=== PATIENT | male | born 2000 | race Caucasian/White ===

== ENCOUNTER 2022-08-16 10:55 | Emergency (ER) | payer OTHER ==
--- NOTE | 2022-08-16 11:12 | ED Physician Documentation ---
PD HPI CHEST PAIN - Stated complaint Stated Complaint: CHEST PAIN - Chief complaint Chief Complaint: Cardiac - History obtained from History obtained from: Patient - History of Present Illness Timing - onset: Yesterday Timing - onset during: Light activity Timing - details: Abrupt onset, Still present, Waxing and waning Pain level max: 2 Pain level now: 1 Quality: Aching, Sharp. No: Pressure, Tightness Location: Left chest, Left shoulder/arm Radiation: No: Jaw, Neck, Back, Abdominal Improved by: No: Rest Worsened by: Inspiration, Movement (lifting arm up), Palpation (left pectoral area). No: Exertion Associated symptoms: Other (he had worked out vigorously 2 days ago for physical training test. No noted injury at that time. onset of some left chest pain yesterday and continues into today, left pectoral area.). No: Shortness of air, Nausea, Feeling faint / dizzy, Palpitations, Cough Similar symptoms before: Has not had sx before Recently seen: Not recently seen Review of Systems Constitutional: denies: Fever, Chills Nose: denies: Rhinorrhea / runny nose, Congestion Throat: denies: Sore throat Cardiac: reports: Chest pain / pressure. denies: Palpitations, Pedal edema, Calf pain Respiratory: denies: Dyspnea, Cough, Wheezing GI: denies: Abdominal Pain, Nausea, Vomiting, Diarrhea Skin: denies: Rash, Lesions Neurologic: denies: Focal weakness, Numbness, Near syncope, Altered mental status PD PAST MEDICAL HISTORY - Past Medical History Past Medical History: No Cardiovascular: None Respiratory: None Endocrine/Autoimmune: None GI: None - Present Medications Home Medications: Ambulatory Orders Medication Instructions Recorded Confirmed No Known Home Medications 08/16/22 08/16/22 - Allergies Allergies/Adverse Reactions: Allergies Allergy/AdvReac Type Severity Reaction Status Date / Time No Known Drug Allergies Allergy Verified 08/16/22 10:59 PD ED PE NORMAL - Vitals Vital signs reviewed: Yes - General General: Alert and oriented X 3, No acute distress, Well developed/nourished - HEENT HEENT: Moist mucous membranes, Pharynx benign - Neck Neck: Supple, no meningeal sign, No adenopathy - Cardiac Cardiac: RRR, No murmur - Respiratory Respiratory: Clear bilaterally, Other (some chestwall tenderness to palpation left pectoral area without deformity, rash, redness. ) - Abdomen Abdomen: Soft, Non tender - Derm Derm: Normal color, Warm and dry - Extremities Extremities: No edema, No calf tenderness / cord Results - Vitals Vitals: Vital Signs - 24 hr 08/16/22 08/16/22 10:59 12:48 Temperature 36.8 C Heart Rate 114 H 83 Respiratory 18 16 Rate Blood Pressure 177/101 H 147/74 H O2 Saturation 100 100 Oxygen O2 Source Room air - EKG (time done) 10:59 Rate: Rate (enter#) (105) Rhythm: Sinus tachycardia [place]: Normal Intervals: Normal [place] QRS: Normal Ischemia: Normal ST segments. No: ST elevation c/w ischemia, ST depression - Labs Labs: Laboratory Tests 08/16/22 08/16/22 08/16/22 11:50 11:50 11:50 WBC 6.9 RBC 4.99 Hgb 15.7 Hct 44.6 MCV 89.4 MCH 31.5 H MCHC 35.2 RDW 11.9 L Plt Count 217 MPV 9.7 Neut # (Auto) 5.3 Lymph # (Auto) 1.2 L Andrew # (Auto) 0.4 Eos # (Auto) 0.0 Baso # (Auto) 0.0 Absolute Nucleated RBC 0.00 Nucleated RBC % 0.0 Sodium 140 Potassium 4.2 Chloride 103 Carbon Dioxide 29 Anion Gap 8.0 BUN 10 Creatinine 1.0 Estimated GFR (MDRD) 92 Glucose 106 H Calcium 10.1 Magnesium 2.1 Total Bilirubin 1.3 H AST 23 ALT 25 Alkaline Phosphatase 68 Troponin I High Sens < 2.3 L C-Reactive Protein < 1.0 Total Protein 7.8 Albumin 5.1 Globulin 2.7 Albumin/Globulin Ratio 1.9 Lipase 25 - Rads (name of study) chest xray Radiology: Prelim report reviewed (no acute process), See rad report PD MEDICAL DECISION MAKING - ED course Complexity details: reviewed results, re-evaluated patient, considered differential, d/w patient Departure - Departure Disposition: Home, Self Care Clinical Impression: Chest discomfort Condition: Stable Record reviewed to determine appropriate education?: Yes Instructions: ED Chest Pain Atypical Unkn Cause Follow-Up: DERICK Jaramillo [Provider Group] Comments: Your EKG, chest x-ray, blood tests are normal. No signs of heart muscle injury, heart failure, pneumonia, fluid around the lungs, collapsed lung, anemia, diabetes. Unclear whether there may be some esophageal irritation or stomach irritation given a possible improvement with the antacid. You can continue some antacid such as Maalox or Mylanta a few times daily. Otherwise consider musculoskeletal pain and muscle spasm. Tylenol every 4-6 hours if needed for discomfort. Recheck if not improved completely over the next day or 2 and follow-up sooner if worsening symptoms or new symptoms develop such as fever cough rash etc. Discharge Date/Time: 08/16/22 12:53
[2022-08-16] MEDS ORDERED: MAG HYDROX/AL HYDROX/SIMETH 30 ML UDC PO STA (11:43)
[2022-08-16 11:56] LABS: BASOPHILS % (AUTO) 0.1 %; EOSINOPHILS % (AUTO) 0.4 %; HCT - HEMATOCRIT 44.6 % (42.0-52.0); HGB - HEMOGLOBIN 15.7 g/dL (14.0-18.0); LYMPHOCYTES # (AUTO) 1.2 10^3/uL (1.5-3.5); MEAN CORPUSCULAR HEMOGLOBIN 31.5 pg (27.0-31.0); MEAN CORPUSCULAR HGB CONC 35.2 g/dL (32.0-36.0); MEAN CORPUSCULAR VOLUME 89.4 fL (80.0-94.0); MEAN PLATELET VOLUME 9.7 fL (7.4-11.4); MONOCYTES # (AUTO) 0.4 10^3/uL (0.0-1.0); MONOCYTES % (AUTO) 5.1 %; NEUTROPHILS # (AUTO) 5.3 10^3/uL (1.5-6.6); NEUTROPHILS % (AUTO) 77.1 %; PLT - PLATELET COUNT 217 10^3/uL (130-450); RED BLOOD COUNT 4.99 10^6/uL (4.70-6.10); RED CELL DISTRIBUTION WIDTH 11.9 % (12.0-15.0); WHITE BLOOD COUNT 6.9 x10^3/uL (4.8-10.8)
--- NOTE | 2022-08-16 12:10 | XRAY Report ---
PROCEDURE: Chest 1 View X-Ray INDICATIONS: Chest Pain TECHNIQUE: One view of the chest was acquired. COMPARISON: None FINDINGS: Surgical changes and devices: None. Lungs and pleura: No pleural effusions or pneumothorax. Lungs are clear. Mediastinum: Mediastinal contours appear normal. Heart size is normal. Bones and chest wall: No suspicious bony lesions. Overlying soft tissues appear unremarkable. IMPRESSION: No acute cardiopulmonary findings Reviewed by: Viral Alcantar MD on 08/16/2022 11:08 AM EUFEMIA Approved by: Viral Alcantar MD on 08/16/2022 11:08 AM AKCASSIE Station ID: [id number]
[2022-08-16 12:16] LABS: ALBUMIN 5.1 g/dL (3.2-5.5); ALBUMIN/GLOBULIN RATIO 1.9 (1.0-2.2); ALKALINE PHOSPHATASE 68 IU/L (42-121); ALT ALANINE AMINOTRANSFERASE 25 IU/L (10-60); AST ASPARTATE AMINOTRANSFERASE 23 IU/L (10-42); BILIRUBIN,TOTAL 1.3 mg/dL (0.2-1.0); BUN - BLOOD UREA NITROGEN 10 mg/dL (6-20); CALCIUM 10.1 mg/dL (8.5-10.3); CARBON DIOXIDE - CO2 29 mmol/L (21-32); CHLORIDE 103 mmol/L (101-111); GFR - MDRD 92 (>89); GLUCOSE 106 mg/dL (70-100); LIPASE 25 U/L (22-51); MAGNESIUM 2.1 mg/dL (1.7-2.8); POTASSIUM 4.2 mmol/L (3.5-5.0); SODIUM 140 mmol/L (135-145); TOTAL PROTEIN 7.8 g/dL (6.7-8.2)
[2022-08-16 12:18] LABS: CRP - C-REACTIVE PROTEIN < 1.0 mg/dL (0-1.0)
[2022-08-16 12:49] VITALS: BP 147/74
== END 2022-08-16 12:53 | disposition home or self-care (01) ==
LOC: ED 10:55
DX: R07.9 Chest pain, unspecified (principal)
CPT/HCPCS: 36415; 71045; 80053; 83690; 83735; 84484; 85025; 86140; 93005; 99284; A9270

== ENCOUNTER 2024-01-06 18:47 | Emergency (ER) | payer OTHER ==
[2024-01-06 19:09] VITALS: BP 132/70; O2SAT 100
[2024-01-06 19:23] LABS: BILIRUBIN,URINE NEGATIVE (NEGATIVE); GLUCOSE, URINE (UA) NEGATIVE (NEGATIVE); KETONES,URINE (UA) NEGATIVE (NEGATIVE); LEUKOCYTE ESTERASE, URINE NEGATIVE (NEGATIVE); NITRITE,URINE NEGATIVE (NEGATIVE); OCCULT BLOOD,URINE NEGATIVE (NEGATIVE); PROTEIN,URINE NEGATIVE (NEGATIVE); UROBILINOGEN,URINE 0.2 (NORMAL) E.U./dL (NORMAL)
[2024-01-06 19:24] LABS: CLARITY,URINE CLEAR (CLEAR)
--- NOTE | 2024-01-06 20:10 | Ultrasound Report ---
PROCEDURE: Testicle w/Doppler INDICATIONS: L testicular pain TECHNIQUE: Real-time scanning was performed of the scrotum and testicles, with image documentation. Color and p ulse Doppler interrogation was performed of both testicles. COMPARISON: None. FINDINGS: Right: Testicle is normal in size at 4.5 x 2.6 x 3.0 cm, and homogenous in echotexture. Epididymis is normal in overall size and morphology. Trace hydrocele. No varicoceles. Overlying scrotal skin i s normal in thickness. Left: Testicle is normal in size at 4.8 x 2.6 x 3.0 cm, and homogeneous in echotexture. Epididymis is normal in overall size and morphology. Trace hydrocele. No varicoceles. Overlying scrotal skin i s normal in thickness. Doppler: Color and pulse Doppler demonstrate normal and symmetric arterial flow in both testicles. IMPRESSION: Testicular ultrasound without acute sonographic abnormalities. No evidence for testicular torsion. Reviewed by: Rod Love MD on 01/06/2024 8:09 PM PST Approved by: Rod Love MD on 01/06/2024 8:09 PM PST Station ID: [id number]
--- NOTE | 2024-01-06 21:07 | ED Physician Documentation ---
History of Present Illness - Stated complaint Stated Complaint: - Chief complaint Chief Complaint: General - Additonal information Additional information: 23-year-old male presents emergency department for left testicular pain. Patient says that this started today around 3:00 at work he said that he was walking and he felt like it was a shaking sensation in his left groin/testicular region. He said he tried to walk around to see if it would go away and it has not gone away. It has not gotten more severe does not cause him pain to the point that he is unable to hold still no nausea or vomiting but it just persist. No history of STDs no new sexual partners. PD PAST MEDICAL HISTORY - Past Medical History Cardiovascular: None Respiratory: None Endocrine/Autoimmune: None GI: None - Present Medications Home Medications: Ambulatory Orders Medication Instructions Recorded Confirmed No Known Home Medications 08/16/22 01/06/24 - Allergies Allergies/Adverse Reactions: Allergies Allergy/AdvReac Type Severity Reaction Status Date / Time No Known Drug Allergies Allergy Verified 01/06/24 19:07 PD ED PE NORMAL - Vitals Vital signs reviewed: Yes - General General: Alert and oriented X 3, No acute distress, Well developed/nourished - HEENT HEENT: Atraumatic - Male Male : [employer] present, Other (Tenderness to the left groin region, positive cremestaric reflux bilaterally) - Neuro Neuro: Alert and oriented X 3 - Psych Psych: Normal mood Results - Vitals Vitals: Vital Signs - 24 hr 01/06/24 01/06/24 19:02 19:07 Temperature 37.1 C 37.1 C Heart Rate 78 78 Respiratory 17 17 Rate Blood Pressure 132/70 H 132/70 H O2 Saturation 100 100 Oxygen O2 Source Room air - Labs Labs: Laboratory Tests 01/06/24 19:00 Urine Color YELLOW Urine Clarity CLEAR Urine pH 6.0 Ur Specific [place] 1.025 Urine Protein NEGATIVE Urine Glucose (UA) NEGATIVE Urine Ketones NEGATIVE Urine Occult Blood NEGATIVE Urine Nitrite NEGATIVE Urine Bilirubin NEGATIVE Urine Urobilinogen 0.2 (NORMAL) Ur Leukocyte Esterase NEGATIVE Ur Microscopic Review NOT INDICATED Urine Culture Comments NOT INDICATED - Rads (name of study) Testicular ultrasound Relevant Findings:: Final report received, EMP independent interpretation of test, Other (No testicular torsion or other acute abnormalities or findings.) PD Medical Decision Making - ED course ED course: The patient is suffering from testicular pain, but based on the history, exam, and work up, I do not suspect that the patient has testicular torsion, abscess, severe cellulitis, Fourniers gangrene, orchitis, epididymitis, inguinal hernia or other emergent cause. Ultrasound complete does not reveal any acute or emergent findings. Patient is told to follow-up with primary care provider for further evaluation and workup of this if this is not getting any better. Patient told to come back to the emergency department if this gets significantly worse. Departure - Departure Disposition: 01 Home, Self Care Clinical Impression: Testicular pain Qualifiers: Laterality: left Qualified Code(s): N50.812 - Left testicular pain Instructions: ED Testicular Pain [facility] Comments: Thank you for trusting us with your care. We have completed an ultrasound of your left testicle and we are not seeing any acute abnormalities at this point in time your urine also is normal. As we discussed go home take Tylenol ibuprofen or supportive underwear and at nighttime elevate testicles when sleeping to see if this helps with any pain and discomfort. If pain becomes significantly and severely worse to the point where you are having nausea vomiting and unable to get comfortable please come back to the emergency department. If your pain stays about the same as it is right now please call your primary care provider for further evaluation and imaging outpatient. Forms: PCP List Discharge Date/Time: 01/06/24 22:01
== END 2024-01-06 22:01 | disposition home or self-care (01) ==
LOC: ED 18:47
DX: N50.812 Left testicular pain (principal)
CPT/HCPCS: 81001; 81003; 87086; 93975; 99283; 99284